=== PATIENT | female | born 1965 | race American Indian/Alaskan Native ===

== ENCOUNTER 2016-10-05 06:38 | Day surgery (SDC) | payer MEDICARE ==
[2016-10-05] MEDS ORDERED: NACL 0.9% 1000 ML 1,000 ML IV SCH (10:00)
--- NOTE | 2016-10-05 10:05 | Anesthesia Day of Surgery ---
Anesthesia Day of Surgery - Day of Surgery Patient Examined: Yes Patient H&P Reviewed: Yes Patient is NPO: Yes
--- NOTE | 2016-10-05 10:05 | Anesthesia Consultation ---
Anesthesia Consult and Med Hx Date of service: 10/05/16 - Airway Anesthetic Teeth Evaluation: Good ROM Head & Neck: Adequate Mental/Hyoid Distance: Adequate Mallampati Class: Class II Intubation Access Assessment: Probably Good - Pulmonary Exam CTA: Yes - Cardiac Exam Cardiac Exam: RRR - Pre-Operative Health Status ASA Pre-Surgery Classification: ASA2 Proposed Anesthetic Plan: MAC - Pulmonary Hx Smoking: No Hx Asthma: No Hx Sleep Apnea: Yes (no CPAP) - Cardiovascular System Hx Hypertension: Yes Hx Cardia Arrhythmia: Yes ("irregular heartbeat") - Central Nervous System Hx Seizures: No CVA: No - Endocrine Hx Renal Disease: No Hx Cirrhosis: No Hx Thyroid Disease: No - Other Systems Hx Obesity: Yes
[2016-10-05] MEDS ORDERED: DIPRIVAN 10 MG/ML IV ONE (10:56)
[2016-10-05] MEDS ORDERED: HURRICAINE ONE 20% TOPICAL SPRAY MM ×2 (11:05)
[2016-10-05] MEDS ORDERED: WATER FOR IRRIG STERILE IR ONE (11:05)
[2016-10-05] MEDS ORDERED: XYLOCAINE MPF 2% ONE (11:09)
--- NOTE | 2016-10-05 11:29 | Operative Report ---
Operative Report Operative Report: DATE: OPERATIVE REPORT - EGD PREOP DIAGNOSIS: gastric dyspepsia POSTOP DIAGNOSIS: Failure of GJ anastomosis. Enterogastric reflux SURGERY: Upper endoscopy. SURGEON: Juan C Quintana M.D. [employer]ERY MECHANIC: Jose Francisco Ramirez M.D. TYPE OF ANESTHESIA: MAC. ESTIMATED BLOOD LOSS: None. COMPLICATIONS: None. SPECIMENS REMOVED: None. FINDINGS: 1. normal esophagus 2. gastric pouch - 60ml 3. gastrojejunal anastomosis is 25mm INDICATIONS:INDICATION FOR PROCEDURE: Patient is a 50 year-old F s/p gastric bypass in 2014. The patient is here today for evaluation for revisional surgery. The patient is here for a planned EGD for gastric dyspepsia. PROCEDURE DETAILS: After consent was reviewed, patient was taken back to the operating room where patient was placed in the left lateral decubitus position and a bite block was placed in the mouth. After a time-out was called, MAC anesthesia was initiated. I then passed the endoscope into the patients oropharynx, into the esophagus, visualized the entire esophagus, which was all within normal limits. I then visualized the gastric pouch which was normal and about 60ml in size. The gastrojejunal anastomosis was stretched at about 25mm. The proximal portion of the marie limb was normal. I then desufflated the gastric pouch and removed the endoscope. Patient tolerated procedure well and was transferred to recovery room in good and stable condition
--- NOTE | 2016-10-05 11:30 | Discharge Summary ---
Providers - Providers Date of discharge: 10/05/16 Attending physician: WAYNE AHUMADA Hospitalization Reason for admission: outpateint EGD Condition: Stable Procedures: EGD Disposition: DISCHARGED TO HOME OR SELFCARE Core Measure Documentation - Palliative Care Palliative Care/ Comfort Measures: Not Applicable - Core Measures Any of the following diagnoses?: none Exam - Physical Exam Narrative exam: unchanged from PRe op - Constitutional Vitals: Temp Pulse Resp BP Pulse Ox 97.6 F 73 73 H 108/74 99 10/05/16 09:15 10/05/16 09:15 10/05/16 09:15 10/05/16 09:15 10/05/16 09:15 Plan Activity: advance as tolerated Diet: low carbohydrate
[2016-10-05 11:51] VITALS: BP 125/86
--- NOTE | 2016-10-05 14:01 | Post Anesthesia Evaluation ---
- Post Anesthesia Evaluation Patient Participated: Yes Airway Patent: Yes Stable Respiratory Function: Yes Nausea/Vomiting: No Temp > 96.8F: Yes Pain Manageable: Yes Adequeate Hydration: Yes Anesthesia Complications: No Block Receding Appropriately: Not Applicable Patient on Ventilator: No
== END 2016-10-05 06:39 | disposition home or self-care (01) ==
LOC: GIO 06:38
PROVIDERS: ATTEND Specialist
DX: K91.89 Other postprocedural complications and disorders of digestive system (principal); K21.9 Gastro-esophageal reflux disease without esophagitis; I10 Essential (primary) hypertension; F32.9 Major depressive disorder, single episode, unspecified; F41.9 Anxiety disorder, unspecified; D50.9 Iron deficiency anemia, unspecified; E66.9 Obesity, unspecified; Z68.33 Body mass index [BMI] 33.0-33.9, adult; Z90.49 Acquired absence of other specified parts of digestive tract; Z96.651 Presence of right artificial knee joint; Z90.710 Acquired absence of both cervix and uterus; Z98.51 Tubal ligation status; Z82.49 Family history of ischemic heart disease and other diseases of the circulatory system; Z83.49 Family history of other endocrine, nutritional and metabolic diseases; Z80.9 Family history of malignant neoplasm, unspecified
CPT/HCPCS: 43235; J2704; J7030

== ENCOUNTER 2017-12-09 10:02 | Outpatient (CLI) | payer MEDICARE | END 2017-12-09 10:03 | disposition home or self-care (01) | LOC: LAB 10:02 | PROVIDERS: ATTEND Orthopaedic Surgery | DX: S83.91XA Sprain of unspecified site of right knee, initial encounter (principal); G47.33 Obstructive sleep apnea (adult) (pediatric); E66.9 Obesity, unspecified; K21.9 Gastro-esophageal reflux disease without esophagitis; M19.90 Unspecified osteoarthritis, unspecified site; F41.9 Anxiety disorder, unspecified; I10 Essential (primary) hypertension; Z90.710 Acquired absence of both cervix and uterus; Z90.49 Acquired absence of other specified parts of digestive tract; X58.XXXA Exposure to other specified factors, initial encounter; Y93.89 Activity, other specified; Y92.89 Other specified places as the place of occurrence of the external cause; Y99.8 Other external cause status | CPT/HCPCS: 36415; 86140 ==